=== PATIENT | male | born 1995 | race African-American/Black ===

== ENCOUNTER 2018-06-21 02:33 | Emergency (ER) | payer OTHER ==
[2018-06-21] MEDS ORDERED: SULFAMETH/TRIMETH DS 800/160 MG TABLET PO STA (03:58)
[2018-06-21] MEDS ORDERED: HYDROcod/ACETAM 5/325 MG TABLET PO STA (03:58)
[2018-06-21] MEDS ORDERED: MUPIROCIN 2% OINT 1 GM TOP STA (04:00)
--- NOTE | 2018-06-21 04:02 | ED Physician Documentation ---
PD HPI SKIN - Stated complaint Stated Complaint: L WRIST PX - Chief complaint Chief Complaint: Ext Problem - History obtained from History obtained from: Patient - History of Present Illness Timing - onset: How many days ago (several) Timing - duration: Days (he had some areas of tender skin with whitish color on thumb, index and middle fingers in rounded area volar pads. 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 But the thumb area with redness and swelling the past couple days. The other fingers had skin layer just peel off and is healing.) Timing - details: Gradual onset Location: LUE (fingers tips) Quality / character: Painful, Discolored (redon thumb), Swelling Associated symptoms: No: Fever, Myalgias Similar symptoms before: Has not had sx before Review of Systems Constitutional: denies: Fever, Chills Skin: reports: Lesions (no noted FB nor impact injury.) PD PAST MEDICAL HISTORY - Past Medical History Past Medical History: No Cardiovascular: None Respiratory: None Neuro: None Endocrine/Autoimmune: None GI: None : None HEENT: None Psych: None Musculoskeletal: None Derm: None - Past Surgical History Past Surgical History: No - Present Medications Home Medications: Ambulatory Orders Medication Instructions Recorded Confirmed Hydrocodone/Acetaminophen [[place] 1 each PO Q6H PRN #12 tablet 06/21/18 5-325 Tablet] RX: Mupirocin 1 applic TP TID #15 g 06/21/18 Sulfamethox/Trimeth 800/160 1 each PO BID #14 tablet 06/21/18 [Bactrim Ds 800/160] - Allergies Allergies/Adverse Reactions: Allergies Allergy/AdvReac Type Severity Reaction Status Date / Time No Known Drug Allergies Allergy Verified 06/21/18 02:45 - Social History Does the pt smoke?: Yes Smoking Status: Current every day smoker Does the pt drink ETOH?: No Does the pt have substance abuse?: No - Immunizations Immunizations are current?: Yes - POLST Patient has POLST: No PD ED PE NORMAL - Vitals Vital signs reviewed: Yes - General General: Alert and oriented X 3, Well developed/nourished - Derm Derm: Normal color, Warm and dry - Extremities Extremities: Other (left thumb tip has some thickened skin without fulctuance. There is redness and swelling extending proximal to it down to the MCP area. ) Results - Vitals Vitals: Vital Signs - 24 hr 06/21/18 06/21/18 06/21/18 02:44 04:05 04:06 Temperature 36.3 C L 36.4 C L Heart Rate 66 80 Respiratory 16 16 14 Rate Blood Pressure 162/100 H 133/87 H O2 Saturation 100 100 Oxygen O2 Source Room air PD MEDICAL DECISION MAKING - ED course Complexity details: considered differential (some sort of skin lesion on tip of thumb, ? contact dermatitis or burn from work, with now appearing cellulitic infection. ), d/w patient Departure - Departure Disposition: Home, Self Care Clinical Impression: Skin infection Condition: Stable Record reviewed to determine appropriate education?: Yes Prescriptions: Hydrocodone/Acetaminophen [[place] 5-325 Tablet] 1 each PO Q6H PRN #12 tablet PRN Reason: Pain RX: Mupirocin 1 applic TP TID #15 g Sulfamethox/Trimeth 800/160 [Bactrim Ds 800/160] 1 each PO BID #14 tablet Comments: This looks like an infection is developed in the site of the skin lesion. It is hard to say if the initial injury of the thumb is a burn or contact dermatitis. However with that more swollen and red at this point along with the painfulness, it would seem likely to be infected as well. Soak it in warm water to 3 times a day. Apply some mupirocin topical antibiotic. Take oral Bactrim antibiotic twice daily for a week. Continue the ibuprofen 2-3 times a day and add Tylenol or hydrocodone if needed for pain. Recheck if not improved well over the next couple of days and return sooner if worsening. Forms: Activity restrictions Discharge Date/Time: 06/21/18 04:18
[2018-06-21 04:06] VITALS: BP 133/87
== END 2018-06-21 04:18 | disposition home or self-care (01) ==
LOC: ED 02:33
DX: L08.9 Local infection of the skin and subcutaneous tissue, unspecified (principal); F17.200 Nicotine dependence, unspecified, uncomplicated
CPT/HCPCS: 99283; A9270